=== PATIENT | female | born 1950 | race Native Hawaiian/Other Pacific Islander ===

== ENCOUNTER 2019-08-05 20:45 | Emergency (ER) | payer OTHER ==
[~2019-08-05] VITALS: Ht 167.6 cm; Wt 74.4 kg
[2019-08-05 20:50] VITALS: BP 118/84; TEMP 98.3
[2019-08-05 21:21] LABS: PLATELET COUNT 284 K/uL (152-353)
[2019-08-05 21:30] LABS: POTASSIUM 4.5 mmol/L (3.6-5.2)
[2019-08-06] MEDS ORDERED: CLONIDINE HYDR0.1 M2 PO (03:31)
[2019-08-06] MEDS ORDERED: DOCU100C10 PO (03:31)
[2019-08-06] MEDS ORDERED: ESTROVE1 PO (03:34)
[2019-08-06] MEDS ORDERED: NEURONTIN 100M100 MG PO (03:35)
[2019-08-06] MEDS ORDERED: PHENELX32 PO (03:37)
[2019-08-06] MEDS ORDERED: ZESTRIL40 MG PO (03:38)
[2019-08-06] MEDS ORDERED: MAGNSUS68 PO (03:41)
[2019-08-06] MEDS ORDERED: PANTOPRAZOLE 40MG TA PO (03:42)
[2019-08-06] MEDS ORDERED: PEPCID40 MG PO (03:43)
[2019-08-06] MEDS ORDERED: PROBIOTI2 PO (03:45)
[2019-08-06] MEDS ORDERED: PROPRANOLOL HYD60 MG PO (03:49)
[2019-08-06] MEDS ORDERED: SALINE NASAL S0.651 NAS (03:51)
[2019-08-06] MEDS ORDERED: SIME80CH32 PO (03:53)
[2019-08-06] MEDS ORDERED: LEVO0.117 PO (03:55)
[2019-08-06] MEDS ORDERED: ONDA4TAB3 PO (03:56)
[2019-08-06] MEDS ORDERED: AMBIEN5 MG PO (03:58)
[2019-08-06] MEDS ORDERED: ZYPREXA ZYDI5 MG PO (04:01)
[2019-08-07] MEDS ORDERED: ABACAVIR SULFAT1 TAB PO (17:25)
[2019-08-07] MEDS ORDERED: CLON0.1T16 PO (17:25)
== END 2019-08-05 22:28 | disposition other institution (70) ==
LOC: ED 20:45
PROVIDERS: Emergency Medicine
DX: F41.8 Other specified anxiety disorders (principal); I10 Essential (primary) hypertension; Z04.6 Encounter for general psychiatric examination, requested by authority
CPT/HCPCS: 80053; 81000; 85027; 93005; 99285